=== PATIENT | male | born 1935 | race Caucasian/White ===

== ENCOUNTER 2019-07-18 09:08 | Inpatient (IN) | payer MEDICARE, OTHER ==
--- OUTSIDE RECORDS SUMMARY | 2019-07-18 09:32 | XMS REPORT ---
:1935 [facility] Address [address] [place] [address] Dr. Laguerre[address] [place] [id number] Care Team Providers Name Role Phone Unavailable Unavailable Unavailable Problems This patient has no known problems. Allergies, Adverse Reactions, Alerts This patient has no known allergies or adverse reactions. Medications This patient has no known medications.
[2019-07-18 09:38] LABS: Absolute Lymphocytes (CBC) 0.4 K/uL (0.7-4.9); Basophils % 0.2 % (0-1.3); Hematocrit 33.9 % (39.6-49.0); MPV 8.5 fL (7.6-11.3); RBC Red Blood Cell Count 3.81 M/uL (4.33-5.43)
--- NOTE | 2019-07-18 09:48 | RAD REPORT ---
EXAM DESCRIPTION: CT - CTHCSPWOC - 07/18/2019 9:32 am CLINICAL HISTORY: fall, laceration, slip and fall, head and neck injury, laceration to the right per iorbital region, left ear contusion COMPARISON: Head Brain W/Wo Con dated 09/03/2015 TECHNIQUE: Axial 5 mm thick images of the head were obtained. Axial 2 mm thick images of the cervic al spine were obtained with sagittal and coronal reconstruction images generated and reviewed. All CT scans are performed using dose optimization technique as appropriate and may include automated exposure control or mA/KV adjustment according to patient size. FINDINGS: No intracranial hemorrhage, mass, edema or acute intracranial finding. No suspicion for ac chase infarction. Moderate severity atrophy and chronic ischemic changes are present. No cortical edema or sulcal effacement. Ventricles are in proportion to volume loss. The intracranial findings are sim ilar to comparison. Mastoid air cells and paranasal sinuses are clear. No globe or orbit abnormality seen. Cervical body height and alignment are normal. No disc space narrowing present. Mineralization is pre sent in the C3-4 disc space and this level is partially fused, probably congenital. Left-side facet j oints are fused at this level. Patient has advanced degenerative change at the dens C1 level. Degener ative cystic changes seen in the dens and there is spurring between the dens and anterior arch C1. Tr ansverse ligament is calcified. Left bony foraminal encroachment present at C2-3 mostly from facet hy pertrophy. Significant bilateral bony foraminal encroachment at C3-4. Moderately severe right foramin al stenosis from facet hypertrophy at C4-5. Severe left foraminal stenosis on the left at C5-6 from u ncovertebral hypertrophy and facet hypertrophy. No fracture or acute bony abnormality. Central canal detail is inherently limited. No paraspinal mass or hematoma. IMPRESSION: Moderate severity atrophy and chronic ischemic change matching the 2016 study. No acute intracranial finding. Advanced cervical spine degenerative change with multiple levels showing significant foraminal stenos is. Findings are detailed in the body of the report. No fracture or acute cervical finding. Central canal detail is inherently limited.
--- NOTE | 2019-07-18 09:58 | RAD REPORT ---
EXAM DESCRIPTION: RAD - Chest Single View - 07/18/2019 9:47 am CLINICAL HISTORY: fall, hypoxia COMPARISON: Two view chest March 2019 TECHNIQUE: AP portable chest image was obtained 07/18/2019 9:47 am . FINDINGS: Extensive chronic interstitial lung disease is present. Lung markings are asymmetrically p rominent in the lower left lung field. This matches the prior study. Given the fall and trauma histor y this is not suspicious for pneumonia. Lower right lung field findings may be slightly improved. Car diomegaly is present. Vasculature within normal limits. Sternotomy wires and pacemaker in place. No p neumothorax. No pulmonary contusion suspected. No gross acute bone abnormality seen. No acute aortic findings suspected. IMPRESSION: Patient has extensive chronic interstitial lung disease worse in the left base. Acute lung parenchymal process is doubtful. No pulmonary contusion or pneumothorax.
[2019-07-18 10:02] LABS: Albumin 3.4 g/dL (3.4-5.0); Bilirubin Total 1.3 mg/dL (0.2-1.0); Protein, Total 7.1 g/dL (6.4-8.2); Troponin (Emerg Dept Use Only) 0.05 ng/mL (0.0-0.045)
[2019-07-18 10:03] LABS: Potassium 3.7 mmol/L (3.5-5.1)
[2019-07-18] MEDS ORDERED: LIDOCAINE 1% W/EPI 1:100,000 MDV 50 ML VIAL ONE (10:53)
--- NOTE | 2019-07-18 11:42 | RAD REPORT ---
EXAM DESCRIPTION: RAD - Hip Bilateral With Pelvis - 07/18/2019 11:33 am CLINICAL HISTORY: Fall, pelvis and hip pain COMPARISON: None. TECHNIQUE: AP view of the pelvis and hip joints was obtained with frogleg views of each hip joint. FINDINGS: No fractures identified in the bony pelvis. Lower lumbar degenerative changes are present only partially visualized. Lowest lumbar level is partially sacralized. SI joint and pubic symphysis degenerative changes are present but minimal. Mild bilateral hip joint degenerative change present. N o AVN or focal femoral head abnormality. No proximal femur fracture or dislocation. Arterial tree calcifications are present. No suspicious soft tissue finding. IMPRESSION: Mild pelvic and hip joint degenerative change. No fracture or acute finding.
--- NOTE | 2019-07-18 12:23 | EDPHYS ---
Physician Documentation [facility] Name: Zeeshan Doe Age: 83 yrs Sex: Male : 1935 Arrival Date: 07/18/2019 Time: 09:14 Bed 7 Private MD: ED Physician Pavan Gómez HPI: 07/17 09:14 This 83 yrs old Male presents to ER via Unassigned with complaints of Fall ps1 Injury, Laceration To Head. 09:14 Patient BIBEMS. Reported low O2 sats, improved with O2 by BNC. Fell while getting off ps1 of the toilet. No reported blood thinners per EMS. AOx3. Skin tears otherwise. No known COVID exposure.. Historical: - Allergies: 09:19 No Known Allergies; sv - Home Meds: 11:32 atorvastatin 80 mg [Active]; Docusate Sodium Oral [Active]; donepezil 5 mg Oral tab sv [Active]; dutasteride 0.5 mg Oral cap [Active]; Eliquis 5 mg Oral tab 1 tab 2 times per day [Active]; Flomax 0.4 mg Oral cp24 1 cap once daily [Active]; gemfibrozil 600 mg Oral tab 1 tab 2 times per day [Active]; Lasix Oral 80 mg daily [Active]; metoprolol tartrate 50 mg Oral tab 1 tab 2 times per day [Active]; [place] 7.5-325 mg Oral tab q12h prn [Active]; Paxil 20 mg Oral tab [Active]; Protonix 40 mg Oral TbEC [Active]; - PMHx: 09:19 High Cholesterol; sv - PSHx: 09:19 Pacemaker; sv - Immunization history:: Adult Immunizations up to date. - Social history:: Smoking status: . ROS: 09:14 Constitutional: Negative for fever, chills, and weight loss, Eyes: Negative for injury, ps1 pain, redness, and discharge, Cardiovascular: Negative for chest pain, palpitations, and edema, Respiratory: Negative for shortness of breath, cough, wheezing, and pleuritic chest pain, Abdomen/GI: Negative for abdominal pain, nausea, vomiting, diarrhea, and constipation, MS/Extremity: Negative for injury and deformity, Neuro: Negative for headache, weakness, numbness, tingling, and seizure, Psych: Negative for depression, anxiety, suicide ideation, homicidal ideation, and hallucinations. 09:14 Skin: Positive for abrasion(s), laceration(s), of the forehead and right eye. Exam: 09:14 Constitutional: This is a well developed, well nourished patient who is awake, alert, ps1 and in no acute distress. Eyes: Pupils equal round and reactive to light, extra-ocular motions intact. Lids and lashes normal. Conjunctiva and sclera are non-icteric and not injected. Chest/axilla: Normal chest wall appearance and motion. Nontender with no deformity. No lesions are appreciated. Cardiovascular: Regular rate and rhythm. No gallops, murmurs, or rubs. Normal PMI, no JVD. No pulse deficits. Respiratory: Lungs have equal breath sounds bilaterally, clear to auscultation and percussion. No rales, rhonchi or wheezes noted. No increased work of breathing, no retractions or nasal flaring. Abdomen/GI: Soft, non-tender, with normal bowel sounds. No distension or tympany. No guarding or rebound. No evidence of tenderness throughout. Neuro: Awake and alert, GCS 15, oriented to person, place, time, and situation. Cranial nerves II-XII grossly intact. Sensory grossly intact. 09:14 Head/face: Noted is hematoma, a laceration(s), that is deep, 4 cm(s), of the forehead and right eye. 09:14 Musculoskeletal/extremity: Extremities: decreased ROM. Vital Signs: 09:19 BP 120 / 67; Pulse 60; Resp 22; Temp 96.9; sv 09:53 BP 120 / 59; Pulse 61; Resp 21; Temp 96.9; Pulse Ox 94% on 4 lpm NC; sv 10:30 BP 132 / 62; Pulse 60; Resp 19; Pulse Ox 95% on 4 lpm NC; sv 12:00 BP 146 / 60; Pulse 60; Resp 16; Pulse Ox 98% on 4 lpm NC; sv 13:18 BP 149 / 61; Pulse 60; Resp 18; Pulse Ox 98% on 4 lpm NC; sv [place] Coma Score: 09:06 Eye Response: spontaneous(4). Verbal Response: oriented(5). Motor Response: obeys sv commands(6). Total: 15. 09:53 Eye Response: spontaneous(4). Verbal Response: oriented(5). Motor Response: obeys sv commands(6). Total: 15. 10:30 Eye Response: spontaneous(4). Verbal Response: oriented(5). Motor Response: obeys sv commands(6). Total: 15. 13:18 Eye Response: spontaneous(4). Verbal Response: oriented(5). Motor Response: obeys sv commands(6). Total: 15. Trauma Score (Adult): 09:06 Eye Response: spontaneous(1); Verbal Response: oriented(1); Motor Response: obeys sv commands(2); Systolic BP: > 89 mm Hg(4); Respiratory Rate: 10 to 29 per min(4); Delia Score: 15; Trauma Score: 12 09:53 Eye Response: spontaneous(1); Verbal Response: oriented(1); Motor Response: obeys sv commands(2); Systolic BP: > 89 mm Hg(4); Respiratory Rate: 10 to 29 per min(4); [place] Score: 15; Trauma Score: 12 13:18 Eye Response: spontaneous(1); Verbal Response: oriented(1); Motor Response: obeys sv commands(2); Systolic BP: > 89 mm Hg(4); Respiratory Rate: 10 to 29 per min(4); [place] Score: 15; Trauma Score: 12 Laceration: 11:11 Wound Repair of 4cm ( 1.6in ) subcutaneous laceration to forehead. Distal ps1 neuro/vascular/tendon intact. Anesthesia: Local anesthetic administered with 5 mls of 1% lidocaine. Wound prep: Simple cleansing with hibiclenz by tx. Skin closed with 4 5-0 Prolene using simple sutures and sterile technique. Dressed with Bacitracin. Patient tolerated well. MDM: 09:20 Patient medically screened. ps1 12:20 ED course: Spoke with Dr. Méndez and he wants patient tested for COVID as this is ps1 significantly different from his normal. Pt to be admitted with precautions. . 12:23 Data reviewed: vital signs, nurses notes, lab test result(s), radiologic studies, and ps1 as a result, I will admit patient. 07/17 09:19 Order name: CBC with Diff; Complete Time: 09:47 ps1 07/17 09:19 Order name: CMP; Complete Time: 10:40 rust 07/17 09:19 Order name: Troponin (emerg Dept Use Only); Complete Time: 10:40 rust 07/17 12:33 Order name: Lipid Profile EDMN 07/17 12:33 Order name: Lipid Profile EDMN 07/17 12:34 Order name: Misc. Lab Test rust 07/17 09:19 Order name: CT Head C Spine; Complete Time: 10:40 rust 07/17 09:19 Order name: CXR XRAY; Complete Time: 10:40 rust 07/17 09:20 Order name: EKG; Complete Time: 09:20 sv 07/17 10:00 Order name: Hip Bilateral With Pelvis; Complete Time: 11:49 EDMN 07/17 14:09 Order name: CT Chest Wo Con ps1 07/17 09:19 Order name: EKG Strip; Complete Time: 09:51 rust 07/17 10:58 Order name: Gloves, Sterile; Complete Time: 10:58 [facility] 07/17 10:58 Order name: Setup Suture Tray; Complete Time: 10:58 [facility] 07/17 12:33 Order name: CONS Physician Consult [facility] 07/17 12:33 Order name: Respiratory Therapy Consult EDMN Administered Medications: 10:50 Drug: Lidocaine-Epinephrine -1%: (1:100,000) 1 application {Note: given to Dr Singer choi for procedure.} Volume: 20 ml; Route: Infiltration; 13:37 Drug: TORadol - Ketorolac 15 mg Route: IVP; Site: left antecubital; sv 14:11 Follow up: Response: No adverse reaction sv Disposition: 07/18/19 12:22 Hospitalization ordered by Prasanna Méndez for Inpatient Admission. Preliminary diagnosis are Hypoxia, Fall, Facial laceration.. - Bed requested for Telemetry/MedSurg (Inpatient). - Status is Inpatient Admission. em1 - Condition is Fair. - Problem is new. - Symptoms are unchanged. Signatures: Dispatcher [employer] EDMN Elsa Eastman RN Guicho Laws em1 Santosh Hernandez RN RN [id number] Singer, Phillip, MD MD ps1 Corrections: (The following items were deleted from the chart) 12:20 09:14 Patient BIBEMS. Reported low O2 sats, improved with O2 by BNC. Fell while getting ps1 off of the toilet. No reported blood thinners per EMS. AOx3. Skin tears otherwise. . ps1 13:04 12:22 Hospitalization Ordered by A Honey MIRELES for Inpatient Admission. Preliminary em1 diagnosis is Hypoxia; Fall; Facial laceration.. Bed requested for Telemetry/MedSurg (Inpatient). Status is Inpatient Admission. Condition is Fair. Problem is new. Symptoms are unchanged. ps1 15:03 13:04 07/18/2019 12:22 Hospitalization Ordered by A Honey MIRELES for Inpatient Admission. em1 Preliminary diagnosis is Hypoxia; Fall; Facial laceration.. Bed requested for Telemetry/MedSurg (Inpatient). Status is Inpatient Admission. Condition is Fair. Problem is new. Symptoms are unchanged. em1
--- NOTE | 2019-07-18 12:23 | ER ---
Nurse's Notes [facility] Name: Zeeshan Doe Age: 83 yrs Sex: Male : 1935 Arrival Date: 07/18/2019 Time: 09:14 Bed 7 Private MD: Diagnosis: Hypoxia;Fall;Facial laceration. Presentation: 07/17 09:06 Chief complaint: EMS states: was getting off of the toilet and his hand slipped and sv fell in the bathroom, denies LOC. Laceration to the right eyebrow, contusion to the left ear/elbow/tricep. Eyes are pinpoint (took 2 tabs of Hydrocodone [employer]) 80% RA placed on O2 \T\ 6L per NC O2 sat up to 93-94%. Bp 158/74 HR-80. Pt c/o buttock pain. Care prior to arrival: IV initiated. 20 GA, in the left antecubital area, Oxygen administered. via nasal cannula. Mechanism of Injury: Fall from standing position. Trauma event details: Injury occurred in the [facility], Injury occurred: at home. Injury occurred: July 18, 2019 Injury occurred at: 02:30. 09:06 Acuity: TISH 2 sv 09:06 Method Of Arrival: EMS: [facility] sv 09:06 Onset of symptoms was July 18, 2019 at 02:30. sv 09:19 Coronavirus screen: The patient has NOT traveled to a country currently being monitored sv by the [facility] within the last 14 days. Proceed with normal triage procedures. The patient has NOT had contact with any known and/or suspected case of coronavirus. Proceed with normal triage procedures. Ebola Screen: Patient negative for fever greater than or equal to 101.5 degrees Fahrenheit, and additional compatible Ebola Virus Disease symptoms Patient denies exposure to infectious person. Patient denies travel to an Ebola-affected area in the 21 days before illness onset. No symptoms or risks identified at this time. Initial Sepsis Screen: Does the patient meet any 2 criteria? RR > 20 per min. No. Patient's initial sepsis screen is negative. Does the patient have a suspected source of infection? No. Patient's initial sepsis screen is negative. Risk Assessment: Do you want to hurt yourself or someone else? Patient reports no desire to harm self or others. Trauma Activation: Not Applicable Physician: ED Physician; Name: ; Notified At: ; Arrived At: Physician: General Surgeon; Name: ; Notified At: ; Arrived At: Physician: Radiology; Name: ; Notified At: ; Arrived At: Physician: Respiratory; Name: ; Notified At: ; Arrived At: Physician: Lab; Name: ; Notified At: ; Arrived At: Historical: - Allergies: 09:19 No Known Allergies; sv - Home Meds: 11:32 atorvastatin 80 mg [Active]; Docusate Sodium Oral [Active]; donepezil 5 mg Oral tab sv [Active]; dutasteride 0.5 mg Oral cap [Active]; Eliquis 5 mg Oral tab 1 tab 2 times per day [Active]; Flomax 0.4 mg Oral cp24 1 cap once daily [Active]; gemfibrozil 600 mg Oral tab 1 tab 2 times per day [Active]; Lasix Oral 80 mg daily [Active]; metoprolol tartrate 50 mg Oral tab 1 tab 2 times per day [Active]; [place] 7.5-325 mg Oral tab q12h prn [Active]; Paxil 20 mg Oral tab [Active]; Protonix 40 mg Oral TbEC [Active]; - PMHx: 09:19 High Cholesterol; sv - PSHx: 09:19 Pacemaker; sv - Immunization history:: Adult Immunizations up to date. - Social history:: Smoking status: . Screenin:54 Abuse screen: Denies threats or abuse. Denies injuries from another. Tuberculosis sv screening: No symptoms or risk factors identified. 09:55 Nutritional screening: No deficits noted. Fall Risk None identified. sv Primary Survey: 09:06 NO uncontrolled hemorrhage observed. A: The patient is alert. Airway: patent, No sv supplemental oxygen in use on arrival. Oral cavity: clear, Trachea midline. Breathing/Chest: Respiratory pattern: regular, Respiratory effort: spontaneous, unlabored, Chest inspection: symmetrical rise and fall of the chest. Circulation: Pulses: palpable right radial artery and left radial artery. Skin color: pink, Skin temperature: warm, dry. Disability Alert. Exposure/Environment: All clothing and personal items were removed. Forensic evidence collection is not deemed to be indicated at this time. Items placed in patient belonging bag. There is no evidence of uncontrolled external bleeding. Obvious injury(ies) are noted at this time: lacerations and contusions. 09:58 Reassessment Airway Airway Patent Oxygen Nasal cannula Oral cavity Clear Trachea sv Midline Breathing/Chest Respiratory pattern Regular Respiratory effort Spontaneous Unlabored Chest inspection Symmetrical Circulation Heart rhythm Paced Heart tones Present Pulses Palpable Color Dewar Temperature Warm Dry Disability Alert. 11:00 Reassessment Airway Airway Patent Oxygen Nasal cannula Oral cavity Clear Trachea sv Midline Breathing/Chest Respiratory pattern Regular Respiratory effort Spontaneous Unlabored Chest inspection Symmetrical Circulation Heart rhythm Paced Heart tones Present Pulses Palpable Color Dewar Temperature Warm Dry Disability Alert. 12:00 Reassessment Airway Airway Patent Oxygen Nasal cannula Oral cavity Clear Trachea sv Midline Breathing/Chest Respiratory pattern Regular Respiratory effort Spontaneous Unlabored Chest inspection Symmetrical Circulation Heart rhythm Paced Heart tones Present Pulses Palpable Color Dewar Temperature Warm Dry Disability Alert. 13:00 Reassessment Airway Airway Patent Oxygen Nasal cannula Oral cavity Clear Trachea sv Midline Breathing/Chest Respiratory pattern Regular Respiratory effort Spontaneous Unlabored Chest inspection Symmetrical Circulation Heart rhythm Paced Heart tones Present Pulses Palpable Color Dewar Temperature Warm Dry Disability Alert. 14:00 Reassessment Airway Airway Patent Oxygen Nasal cannula Oral cavity Clear Trachea sv Midline Breathing/Chest Respiratory pattern Regular Respiratory effort Spontaneous Unlabored Chest inspection Symmetrical Circulation Heart rhythm Paced Heart tones Present Pulses Palpable Color Dewar Temperature Warm Dry Disability Alert. Secondary Survey: 09:10 HEENT: Head Other laceration noted to the right eyebrow. : No signs and/or symptoms sv were reported regarding the genitourinary system. Musculoskeletal: No signs and/or symptoms reported regarding the musculoskeletal system. Assessment: 11:33 Reassessment: Alondra castellanos) is pt's visitor at this time. sv 13:19 Reassessment: Attempted to call report, nurse to call back. sv Vital Signs: 09:19 BP 120 / 67; Pulse 60; Resp 22; Temp 96.9; sv 09:53 BP 120 / 59; Pulse 61; Resp 21; Temp 96.9; Pulse Ox 94% on 4 lpm NC; sv 10:30 BP 132 / 62; Pulse 60; Resp 19; Pulse Ox 95% on 4 lpm NC; sv 12:00 BP 146 / 60; Pulse 60; Resp 16; Pulse Ox 98% on 4 lpm NC; sv 13:18 BP 149 / 61; Pulse 60; Resp 18; Pulse Ox 98% on 4 lpm NC; sv Delia Coma Score: 09:06 Eye Response: spontaneous(4). Verbal Response: oriented(5). Motor Response: obeys sv commands(6). Total: 15. 09:53 Eye Response: spontaneous(4). Verbal Response: oriented(5). Motor Response: obeys sv commands(6). Total: 15. 10:30 Eye Response: spontaneous(4). Verbal Response: oriented(5). Motor Response: obeys sv commands(6). Total: 15. 13:18 Eye Response: spontaneous(4). Verbal Response: oriented(5). Motor Response: obeys sv commands(6). Total: 15. Trauma Score (Adult): 09:06 Eye Response: spontaneous(1); Verbal Response: oriented(1); Motor Response: obeys sv commands(2); Systolic BP: > 89 mm Hg(4); Respiratory Rate: 10 to 29 per min(4); [place] Score: 15; Trauma Score: 12 09:53 Eye Response: spontaneous(1); Verbal Response: oriented(1); Motor Response: obeys sv commands(2); Systolic BP: > 89 mm Hg(4); Respiratory Rate: 10 to 29 per min(4); Delia Score: 15; Trauma Score: 12 13:18 Eye Response: spontaneous(1); Verbal Response: oriented(1); Motor Response: obeys sv commands(2); Systolic BP: > 89 mm Hg(4); Respiratory Rate: 10 to 29 per min(4); Delia Score: 15; Trauma Score: 12 ED Course: 09:06 Oxygen administration via nasal cannula \T\ 4L/min. sv 09:06 Maintain EMS IV. Dressing intact. Good blood return noted. Site clean \T\ dry. Gauge \T\ sv site: 20G R AC. 09:10 Thermoregulation: warm blanket given to patient. sv 09:10 Arm band placed on Patient placed in an exam room, on a stretcher, on auto care center manager, sv on pulse oximetry. 09:10 Patient has correct armband on for positive identification. Placed in gown. Bed in low sv position. Call light in reach. Side rails up X2. client service administrator on. Pulse ox on. NIBP on. Door closed. Warm blanket given. Pillow given. Head of bed elevated. Turned to right side. 09:14 Patient arrived in ED. sv 09:14 Elsa Eastman, [place] is Primary Nurse. sv 09:14 Pavan Gómez MD is Attending Physician. ps1 09:18 Triage completed. sv 09:33 CT Head C Spine In Process Unspecified. EDMS 09:56 CXR XRAY In Process Unspecified. EDMS 11:32 Hip Bilateral With Pelvis In Process Unspecified. EDMS 11:37 X-ray completed. Patient tolerated procedure well. Patient moved back from radiology. ml 11:37 Patient moved back from radiology. sv 12:22 Pavan Gómez MD is Hospitalizing Provider. ps1 12:22 Prasanna Méndez MD is Hospitalizing Provider. ps1 14:12 No provider procedures requiring assistance completed. Patient admitted, IV remains in sv place. intact. Administered Medications: 10:50 Drug: Lidocaine-Epinephrine -1%: (1:100,000) 1 application {Note: given to Dr Singer choi for procedure.} Volume: 20 ml; Route: Infiltration; 13:37 Drug: TORadol - Ketorolac 15 mg Route: IVP; Site: left antecubital; sv 14:11 Follow up: Response: No adverse reaction sv Intake: 09:06 PO: 0ml; Total: 0ml. sv 09:53 PO: 0ml; Total: 0ml. sv 13:18 PO: 0ml; Total: 0ml. sv Output: 09:06 Urine: 0ml; Total: 0ml. sv 09:53 Urine: 0ml; Total: 0ml. sv 13:18 Urine: 0ml; Total: 0ml. sv Outcome: 12:22 Decision to Hospitalize by Provider. ps1 14:09 Admitted to Tele accompanied by tech, via stretcher, room 417, with oxygen, with chart, sv Report called to Angella GHOTRA 14:09 Condition: stable 14:09 Instructed on the need for admit. 14:13 Patient's length of stay in the Emergency Department was greater than 2 hours. sv Patient's length of stay was extended due to staffing issues within the emergency department. 15:03 Patient left the ED. em1 Signatures: Dispatcher [employer] EDMS Elsa Eastman, Lisa Andrade RN, Eric em1 Pavan Gómez MD MD ps1 Corrections: (The following items were deleted from the chart) 09:52 09:06 Chief complaint: EMS states: was getting off of the toilet and his hand slipped sv and fell in the bathroom, denies LOC. Laceration to the right eyebrow, contusion to the left ear/elbow/tricep. Eyes are pinpoint (took 2 tabs of Hydrocodone [employer]) 80% RA placed on O2 \T\ 6L per NC O2 sat up to 93-94%. Bp 158/74 HR-80 sv
[2019-07-18] MEDS ORDERED: KETOROLAC 30 MG/ML INJ ONE (13:33)
[2019-07-18 15:01] VITALS: BMI 27.6
--- NOTE | 2019-07-18 15:07 | RAD REPORT ---
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 Areas of airspace opacity are present in both lowe r lobes, greater on the left suspicious for superimposed infiltrate/pneumonia. Small bilateral pleura l effusions. No pneumothorax. The heart is enlarged with pacer device present. Few mildly prominent mediastinal lymph nodes. Small hiatal hernia. No concerning bony finding. Cholelithiasis. All CT scans are performed using dose optimization technique as appropriate and may include automated exposure control or mA/KV adjustment according to patient size. 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
--- NOTE | 2019-07-18 16:53 | EKG ---
Test Date: 2019-07-18 Test Time: 09:44:24 Personal Financial Advisor: ADALID MEASUREMENT RESULTS: Intervals: Rate: 60 [place]: QRSD: 198 QT: 548 QTc: 548 [place]: P: [place]: QRS: -86 T: 113 INTERPRETIVE STATEMENTS: Rhythm consistent with DDD pacing atrial complexes are both paced and sensed on this ECG Abnormal ECG Compared to ECG 05/10/2012 14:26:44 no significant change from previous ECG Electronically Signed On 07-18-19 16:53:21 CDT by Doc Marques
[2019-07-18] MEDS ORDERED: AZITHROMYCIN IV 500 MG in NA CHLORIDE 0.9% 250 ML IVPB ONE (22:21)
[2019-07-18] MEDS: CEFTRIAXONE/SWI 1gm 1 GM/10 ML SYR IV SCH (22:40)
[2019-07-18] MEDS: HYDROCODONE/APAP 7.5/325 MG TAB PO PRN (22:41)
[2019-07-18] MEDS ORDERED: NA CHLORIDE 0.9% 250 ML ONE (22:43)
[2019-07-18] MEDS ORDERED: AZITHROMYCIN 500 MG INJ IVPB ONE (22:43)
--- NOTE | 2019-07-19 08:20 | HP ---
Date of Admission: 07/18/2019 Chief Complaint: Fall, head injury, low oxygen level, feeling dizzy. History Of Present Illness: 83-year-old male patient who has been feeling dizzy lately and had multiple falls at home. Last fall was today where he fell down and had hit his head and had superficial laceration involving right forehead area. He came into emergency room with this. After he arrived to the ER, he also reported he has been having some cough lately and he was noted to be hypoxic with oxygen saturation 70% to 80% on room air. His oxygen saturation subsequently was adequate, more than 90%, on nasal cannula oxygen. He was not in any respiratory distress. As soon as ER physician contacted me, I advised him to perform test for COVID-19, put the patient on appropriate isolation precautions, and CAT scan of the chest was ordered. Patient was admitted to medical floor as he was hemodynamically stable. I saw him this evening along with the nurse in the room. Patient was advised to keep his face mask on all the time while he is awake or sleeping. Review of Systems: LEAF STRIPPER: As mentioned above. Respiratory: As mentioned above. ENT: Impaired hearing, which is chronic. Musculoskeletal: Chronic back pain. All other systems reviewed and negative. Allergies: NO KNOWN ALLERGIES. Medications: At home takes Thurman, which was prescribed by the pain management physician. Other medication includes atorvastatin 80 mg daily in the evening, donepezil 5 mg daily, gemfibrozil 600 mg 2 times a day, metoprolol tartrate 25 mg 2 times a day, nitroglycerin sublingual p.r.n. for chest pain, paroxetine 20 mg p.o. daily, Xarelto 20 mg p.o. daily in the evening with meals, tamsulosin 0.4 mg p.o. daily, famotidine 20 mg p.o. b.i.d. Past Medical History: Significant for gastroesophageal reflux disease, impaired fasting glucose, allergic rhinitis, hypertension, mixed hyperlipidemia , coronary artery disease, benign prostatic hypertrophy with elevated PSA, osteoarthritis at multiple sites, anemia, thrombocytopenia, depression. Past Surgical History: Cataract surgery, coronary artery bypass surgery in 1999 , pacemaker placement in 2007, TURP in 2014, UroLift in 2017, vasectomy, left shoulder surgery, arthroscopic right knee surgery. Family History: Father of emphysema. Mother , details unknown. Brother due to throat cancer and sister , details unknown. Social History: Negative for smoking. Use of alcohol negative. Physical Examination: Vital Signs: Temperature 98.2, pulse 62, respiratory rate 19, blood pressure 147/81, oxygen saturation 99%. General: Awake, alert, oriented, not in distress. HEENT: Forehead area just above the right brow has a superficial laceration with multiple sutures present. No evidence of any discharge or bleeding. Conjunctivae nonerythematous. Sclerae white. Mouth, no thrush or edema noted. Ears/Nose, no mass, lesion, discharge noted. Neck: Supple. No JVD, lymph nodes, bruit, thyromegaly noted. Lungs: Bilateral good equal air entry. Clear to auscultation. No rhonchi. No rales. Heart: Normal heart sounds, no murmur or gallop. Abdomen: Soft, bowel sounds normal. No guarding, rigidity, tenderness, mass, hepatosplenomegaly, distention, or bruit noted. Extremities: No leg edema. No calf tenderness. Skin: No rash, ulcer, cellulitis. Lymphatics: No lymph node enlargement in neck, supraclavicular, infraclavicular region. Neuro: No focal neurological deficit. Chest: Unremarkable. External Genitalia: Deferred. Rectal: Deferred. Laboratory Data: White count 7.3, hemoglobin 11.4, platelets 120. Sodium 140, potassium 3.7, chloride 105, bicarb 23, BUN 24, creatinine 1.11, glucose 105, SGOT 25, SGPT 15, alkaline phosphatase 73. Troponin 0.05. Chest x-ray, extensive chronic interstitial lung disease, worse in the left lung base. CAT scan of the chest, prominent fibro-emphysematous changes present throughout the lungs with air space opacity in both lower lobes with trace pleural fluid. Finding suspicious for pneumonia in both lung bases. CAT scan of the head and cervical spine, moderate severity, atrophy and chronic ischemic changes. Advanced cervical spine degenerative changes. No acute cervical spine findings. Presence of significant bilateral foraminal stenosis. Hip and pelvis x-ray, mild pelvic and hip joint degenerative changes. No fracture. Electrocardiogram, paced rhythm. Impression: 1. Pneumonia. 2. Head injury. 3. Coronary artery disease. 4. Anemia. 5. Thrombocytopenia. 6. Osteoarthritis, multiple sites. 7. Hypertension. 8. Mixed hyperlipidemia. 9. Impaired fasting glucose. 10. Depression. Plan: Admit patient to hospital for further evaluation and management of this problem. Patient is appropriate for inpatient and is expected to spend 2 midnights in hospital. Home medications will be continued per order. We will go ahead and consult Dr. Pacheco from Pulmonary. Start the patient on empiric antibiotic, keep the patient in isolation room with appropriate precautions until COVID-19 test result becomes available. As per my understanding, test was done and results may not be available for 4-5 days. I will see him tomorrow for followup. GURPREET/MODL Voice ID: [id number] ELOISA
[2019-07-19] MEDS ORDERED: CEFTRIAXONE 1 GM/NS 50 ML 1 GM/50 ML BAG IV SCH (09:00)
[2019-07-19] MEDS: HYDROCODONE/APAP 7.5/325 MG TAB PO PRN ×2 (09:07→20:43)
[2019-07-19] MEDS: TAMSULOSIN 0.4 MG SR CAP PO SCH (09:08)
[2019-07-19] MEDS: APIXABAN 5 MG TABLET PO SCH ×2 (09:08→20:42)
[2019-07-19] MEDS: PANTOPRAZOLE 40MG TABLET PO SCH (09:08)
[2019-07-19] MEDS: gemfibroziL 600 MG TAB PO SCH ×2 (09:08→20:42)
[2019-07-19] MEDS: FUROSEMIDE 40 MG TABLET PO SCH (09:14)
[2019-07-19] MEDS: CEFTRIAXONE/SWI 1gm 1 GM/10 ML SYR IV SCH ×2 (10:01→20:44)
--- NOTE | 2019-07-19 12:32 | PN ---
Date of Progress Note: 07/19/2019 Subjective: Patient was seen this morning for followup. No new complaints or problems reported by h im. Lying in bed, not in any distress. Denies any new complaints. Objective: Vital Signs: Reviewed. HEENT: Unremarkable except sutures present over the right forehead area. No bleeding. Patient has bruising around the right eye. Lungs: Clear to auscultation. Heart: Sounds normal. Abdomen: Soft. Bowel sounds normal. Impression: 1.Pneumonia. 2.Rule out COVID-19. 3.Chronic anticoagulation therapy. 4.Congestive heart failure, chronic, systolic. 5.Hypertension. 6.Coronary artery disease. 7.Mixed hyperlipidemia. Plan: We will go ahead and continue home medications including his anticoagulation therapy. He take s Eliquis 5 mg twice a day per neurology physician. We will continue empiric antibiotic that was started fo r pneumonia. Follow up with Dr. Pacheco and keep the patient in isolation at the present time and r esult of COVID-19 test is pending. GURPREET/MODL Voice ID: [id number] Report ID: [id number]
--- NOTE | 2019-07-19 13:23 | P.CNS ---
Date of Consult: 07/19/19 Reason for Consult: Interstitial lung disease Chief Complaint: Cough and shortness of breath History of Present Illness: Patient is 83 years of age is was dizzy at fallen as some bruising on his face he has been complaining of a chronic severe persistent cough in addition to shortness of breath he has never smoked very hard of hearing denies any recent fever for recent contact with Covid19 patient/chest x-ray and CT scan shows pulmonary fibrosis fairly classic changes Allergies No Known Allergies Allergy (Unverified 07/18/19 09:54) Home Medications: Apixaban [Eliquis] 1 tab PO BID 07/18/19 Atorvastatin Calcium [Lipitor] 1 tab PO BEDTIME 07/18/19 Furosemide 1 tab PO DAILY 07/18/19 Hydrocodone 7.5/APAP 325 [Meldrim 7.5/325 mg*] 1 tab PO Q12H 07/18/19 Metoprolol Tartrate [Lopressor*] 1 tab PO BID 07/18/19 Pantoprazole [Protonix Tab*] 1 tab PO DAILY 07/18/19 Tamsulosin HCl 1 tab PO DAILY 07/18/19 gemfibroziL [Gemfibrozil] 1 tab PO BID 07/18/19 Dutasteride [Avodart*] 1 tab PO DAILY 07/19/19 - Past Medical/Surgical History Diabetic: No -: arthritis -: hyperlipidemia -: HTN -: pacemaker -: right shoulder surgery -: right knee surgery - Social History Alcohol use: No CD- Drugs: No Caffeine use: No Place of Residence: Home Review of Systems General: Weakness Respiratory: Cough, Shortness of Breath Physical Examination Temp Pulse Resp BP Pulse Ox 97.1 F 82 18 108/63 98 07/19/19 12:00 07/19/19 12:00 07/19/19 12:00 07/19/19 12:00 07/19/19 12:00 General: Alert, Oriented x3 Respiratory: Crackles/rales (Bilateral) Cardiovascular: No edema, Regular rate/rhythm - Problems (1) Idiopathic pulmonary fibrosis Current Visit: Yes Status: Acute Plan: Patient is 83 years of age a he had fallen feeling weak and easy complaining of chronic cough he has idiopathic pulmonary fibrosis classic changes on CT scan with subpleural cystic changes he has been having cough and shortness of breath for quite some time as not smoke there is no clinical evidence of sepsis vital signs are stable no cultures ordered will evaluate him for home O2 possible discharge on prednisone 10 mg b.i.d. possible antibiotics need outpatient workup I suspect his chronic cough is from is idiopathic pulmonary fibrosis blood pressure is low consider lowering the dose of his diuretic
[2019-07-19] MEDS: predniSONE 20 MG TAB PO SCH ×2 (13:44→20:42)
[2019-07-19] MEDS ORDERED: ATORVASTATIN 80 MG TAB PO SCH (21:00)
[2019-07-20 07:44] VITALS: O2SAT 95
[2019-07-20] MEDS: APIXABAN 5 MG TABLET PO SCH (08:19)
[2019-07-20] MEDS: gemfibroziL 600 MG TAB PO SCH (08:19)
[2019-07-20] MEDS: PANTOPRAZOLE 40MG TABLET PO SCH (08:19)
[2019-07-20] MEDS: CEFTRIAXONE/SWI 1gm 1 GM/10 ML SYR IV SCH (08:19)
[2019-07-20] MEDS: predniSONE 20 MG TAB PO SCH (08:19)
[2019-07-20] MEDS: TAMSULOSIN 0.4 MG SR CAP PO SCH (08:20)
[2019-07-20] MEDS: FUROSEMIDE 40 MG TABLET PO SCH (08:20)
--- NOTE | 2019-07-20 16:29 | PN ---
Date of Progress Note: 07/20/2019 Subjective: The patient was seen this morning for followup. No new complaints or problems reported by patient. Lying in bed, not in any distress. Objective: Vital Signs: Reviewed. HEENT: Unremarkable except right forehead laceration with sutures present. No evidence of any disch arge or bleeding. Lungs: Clear to auscultation. Heart: Sounds normal. Abdomen: Soft. Bowel sounds normal. No guarding, rigidity, tenderness, or distention. Extremities: No leg edema. Impression: 1.Pneumonia. 2.Pulmonary fibrosis. 3.Chronic systolic congestive heart failure. 4.Rule out COVID-19. Plan: The patient's room air oxygen saturation is 87% and he does qualify for home oxygen. Appropri ate form was signed this morning and hospital staff will try to get home oxygen arranged. Once that is arranged, plan is to discharge him to go home. Patient is afebrile and his COVID-19 test result i s pending. Hopefully, it will be available Monday or so, but if the patient is ready for discharge, once oxygen arrangements get completed, then our plan is to discharge him to go home and he should co ntinue to follow appropriate precautions at home for COVID-19 isolation and nursing staff will provid e him with appropriate precautions. GURPREET/MODL Voice ID: [id number] Report ID: [id number]
[2019-07-20 17:53] VITALS: BP 134/60; TEMP 97.8
--- NOTE | 2019-07-29 21:22 | DS ---
Date of Discharge: 07/20/2019 Disposition: Discharged to go home. Physical Examination: See copy of today's progress note dictation for details hospital. Discharge Medications And Instructions: 1.Continue all prior home medications. 2.Take cefuroxime and prednisone as prescribed, take it with food, and prescription was sent from my office. 3.Follow up with Dr. Pacheco in 1 week. Follow up in my office in 2 weeks. 4.Use oxygen all the time per nasal cannula at 2 L/minute. 5.Follow isolation precautions for COVID-19 as given from hospital until further instruction. Hospital Course: This is an 83-year-old pleasant male patient, admitted to the hospital after he fel l down, had a head injury and low oxygen level and feeling dizzy. Please see dictated H and P for mo re information. After patient was evaluated in the emergency room, he was admitted to the hospital. Please see dictated H and P for more details. Patient had a superficial laceration of the right for ehead area just near the eyebrow and he had multiple sutures taken in the emergency room. He had windy e contusion around this area. His chest x-ray showed extensive fibrotic chronic interstitial lung ch anges, worse in the left lung. CAT scan of the chest showed prominent fibro-emphysematous changes pr esent throughout his lungs and presence of airspace opacity in both lower lobes with trace amount of fluid. Finding suspicious for pneumonia in both lung bases. CAT scan of the head and cervical spine was negative for any acute changes. Hip x-ray and pelvis x-ray were negative for fracture. It show ed some mild degenerative changes. His white count was 7.3, hemoglobin 11.4, platelets 120. Sodium 140, potassium 3.7, chloride 105, bicarb 23, BUN 24, creatinine 1.11, glucose 105. After he was eval uated in the ER, he was admitted to the hospital. Patient was a person under investigation for COVID -19 and appropriate isolation precautions were followed throughout this hospitalization. His COVID-1 9 test result was pending until the time of discharge. Dr. Pacheco was consulted from Pulmonary and he believes that the patient's hypoxia is most likely due to underlying chronic pulmonary fibrosis a nd patient was given empiric antibiotic for pneumonia. Overall, his condition remained stable. Arra ngements were made for patient to have home oxygen. Once that arrangement is completed, patient was discharged to go home in stable condition. Final Diagnoses: 1.Pneumonia. 2.Pulmonary fibrosis. 3.Head injury, initial. 4.Laceration, right forehead area. 5.Coronary artery disease. 6.Anemia. 7.Thrombocytopenia. 8.Osteoarthritis, multiple sites. 9.Hypertension. 10.Mixed hyperlipidemia. 11.Impaired fasting glucose. 12.Depression. 13.Chronic systolic congestive heart failure. GURPREET/MODL Voice ID: [id number] Report ID: [id number]
== END 2019-07-20 19:17 | disposition home or self-care (01) | DRG 194 ==
LOC: ER 09:08 → ERHOLD 12:28 → 4TH 14:09
PROVIDERS: ADMIT Internal Medicine; ATTEND Internal Medicine
PROC: 0JQ13ZZ Repair Face Subcutaneous Tissue and Fascia, Percutaneous Approach (ICD-10-PCS; principal; 2019-07-18)
PROC: 8E0ZXY6 Isolation (ICD-10-PCS; 2019-07-18)
DX: J18.9 Pneumonia, unspecified organism (principal); I50.22 Chronic systolic (congestive) heart failure; I11.0 Hypertensive heart disease with heart failure; I25.10 Atherosclerotic heart disease of native coronary artery without angina pectoris; E78.2 Mixed hyperlipidemia; Z79.01 Long term (current) use of anticoagulants; Y92.091 Bathroom in other non-institutional residence as the place of occurrence of the external cause; Z79.899 Other long term (current) drug therapy; S50.00XA Contusion of unspecified elbow, initial encounter; W18.12XA Fall from or off toilet with subsequent striking against object, initial encounter; S01.111A Laceration without foreign body of right eyelid and periocular area, initial encounter; J84.112 Idiopathic pulmonary fibrosis; Z95.0 Presence of cardiac pacemaker; K21.9 Gastro-esophageal reflux disease without esophagitis; Z95.1 Presence of aortocoronary bypass graft; Z90.79 Acquired absence of other genital organ(s); D64.9 Anemia, unspecified; D69.6 Thrombocytopenia, unspecified; M19.90 Unspecified osteoarthritis, unspecified site; R73.01 Impaired fasting glucose; F32.9 Major depressive disorder, single episode, unspecified; Z79.52 Long term (current) use of systemic steroids; S09.90XA Unspecified injury of head, initial encounter; Z20.828 Contact with and (suspected) exposure to other viral communicable diseases
CPT/HCPCS: 36415; 70450; 71045; 71250; 72125; 73521; 80053; 80061; 84484; 85025; 93005; 96374; 99285; J0456; J0696; J7030; J7512; U0002

== ENCOUNTER 2020-01-03 06:53 | Day surgery (SDC) | payer MEDICARE, OTHER ==
--- OUTSIDE RECORDS SUMMARY | 2020-01-03 07:00 | XMS REPORT | Continuity of Care Document ---
:1935 Author Organization [facility] t Address [address] [place] [address] Dr. Barnes [address] [place] [id number] Care Team Providers Name Role Phone Unavailable Unavailable Unavailable Problems This patient has no known problems. Allergies, Adverse Reactions, Alerts This patient has no known allergies or adverse reactions. Medications This patient has no known medications. Procedures This patient has no known procedures. Results This patient has no known results.
[2020-01-03] MEDS ORDERED: EPINEPHRINE/PF 1 MG/ML AMP ONE (07:18)
[2020-01-03] MEDS ORDERED: Ringers Lactate 1,000 ML IV ONE (07:31)
[2020-01-03] MEDS ORDERED: LIDOCAINE 1% MPF 30 ML VIAL ONE (07:32)
[2020-01-03] MEDS ORDERED: propofoL 200 MG/20 ML VIAL IV ONE (07:32)
[2020-01-03] MEDS ORDERED: Phenylephrine HCl 10 MG/ML 1 ML VIAL ONE (07:55)
[2020-01-03] MEDS ORDERED: NS 0.9% VIAL 0 ML ONE (07:55)
[2020-01-03 09:10] VITALS: BP 109/48; TEMP 97.5; O2SAT 93
[2020-01-03] MEDS ORDERED: NEOSTIGMINE 1 MG/ML -5 ML ONE (10:14)
[2020-01-03] MEDS ORDERED: GLYCOPYRROLATE 0.2 MG/ML SYR ONE (10:14)
--- NOTE | 2020-01-03 18:43 | OP ---
Surgeon: Shawn Waters MD Procedure To Be Performed: Esophagogastroduodenoscopy. Indication For Procedure: Dysphagia. Plan For Anesthesia: Monitored anesthesia care. Complexity: High due to patient's comorbidities. Technique: After obtaining informed consent from the patient explaining risks and complications, whi ch include, but are not limited to bleeding, infection, perforation, and anesthesia complication, the patient was placed in the left lateral position and sedation was given. From then on the scope was advanced to the mouth and carefully guided up till the second portion of the duodenum. After the com pletion of examination, scope and equipment were withdrawn and procedure terminated in a safe manner. Findings: The whole esophagus appeared to be tortuous, however, in the distal portion there was a mi ld stenosis seen. Along with the stenosis, there was evidence of LA grade C esophagitis with multipl e ulcerations in the distal esophagus. Biopsies taken. These findings are a relative contraindicati on to any dilation at this time. A small hiatal hernia was also seen in the distal portion of stomac h. Mild patchy erythema was seen in the body and antrum. In the antral pre-pyloric region, 2 crated but small ulcers were visualized. Biopsies were taken. Duodenum, the bulb, and second portion appe ared normal. Complications: None. Tolerance To Anesthesia: Excellent. Postoperative Diagnoses: Gastric ulcers, esophageal ulcers, severe esophagitis, hiatal hernia, gastr itis, esophageal stenosis. Plan: 1.Await pathology results. 2.Avoid NSAIDs. 3.Change PPI to twice a day. We will repeat endoscopy in 8 weeks time with possible dilation if nee ded. US/MODL Voice ID: [id number] Report ID: [id number]
== END 2020-01-03 08:53 | disposition home health service (06) ==
LOC: OR 06:53
PROVIDERS: ATTEND Internal Medicine Gastroenterology
PROC: 0DB78ZX Excision of Stomach, Pylorus, Via Natural or Artificial Opening Endoscopic, Diagnostic (ICD-10-PCS; 2020-01-03)
PROC: 0DB68ZX Excision of Stomach, Via Natural or Artificial Opening Endoscopic, Diagnostic (ICD-10-PCS; 2020-01-03)
PROC: 0DB58ZX Excision of Esophagus, Via Natural or Artificial Opening Endoscopic, Diagnostic (ICD-10-PCS; principal; 2020-01-03 08:00)
DX: K25.9 Gastric ulcer, unspecified as acute or chronic, without hemorrhage or perforation (principal); K22.10 Ulcer of esophagus without bleeding; K29.50 Unspecified chronic gastritis without bleeding; K20.9 Esophagitis, unspecified; K44.9 Diaphragmatic hernia without obstruction or gangrene; K22.2 Esophageal obstruction; Z20.828 Contact with and (suspected) exposure to other viral communicable diseases; E78.00 Pure hypercholesterolemia, unspecified; Z95.0 Presence of cardiac pacemaker
CPT/HCPCS: 43239; 88312 ×2; 88305; U0002; J2704; J2710; J7120; J0171; J2370

== ENCOUNTER 2020-02-27 07:06 | Day surgery (SDC) | payer MEDICARE, OTHER ==
--- OUTSIDE RECORDS SUMMARY | 2020-02-27 07:09 | XMS REPORT | Continuity of Care Document ---
:1935 Author Organization [facility] t Address [address] [place] [address] Dr. Barnes [address] [place] [id number] Care Team Providers Name Role Phone Unavailable Unavailable Unavailable Problems This patient has no known problems. Allergies, Adverse Reactions, Alerts This patient has no known allergies or adverse reactions. Medications This patient has no known medications. Procedures This patient has no known procedures. Results This patient has no known results.
[2020-02-27] MEDS ORDERED: propofoL 200 MG/20 ML VIAL IV ONE (07:20)
[2020-02-27] MEDS ORDERED: Ringers Lactate 1,000 ML IV ONE (07:52)
[2020-02-27 10:25] VITALS: TEMP 97.7
[2020-02-27 10:26] VITALS: BP 119/59; O2SAT 100
--- NOTE | 2020-02-27 10:38 | OP ---
Surgeon: Shawn Waters MD Procedure To Be Performed: Esophagogastroduodenoscopy. Indication For Procedure: Follow up on esophageal ulcers plus history of esophageal stenosis, possib le dilation. Plan For Anesthesia: Monitored anesthesia care. Complexity: Average. Technique: After obtaining informed consent from the patient explaining risks and complications whic h include but are not limited to bleeding, infection, perforation, and anesthesia complication, the p atient was placed in the left lateral position and sedation was given. From then on, the scope was a dvanced through the mouth and carefully guided up to the second portion of the duodenum. After the c ompletion of examination and all therapeutic diagnostic maneuvers, scope and equipment were withdrawn and procedure terminated in a safe manner. Findings: Esophagus: No gross lesion seen in the upper and mid esophagus. In the distal esophagus, there was mild stenosis seen with an irregular Z-line. Most of the ulceration has healed. Biopsies taken from this region. Stomach: Mild patchy erythema seen in the body. Moderate erythema seen in the antrum with a few ero sions. Biopsies taken. Duodenum: No gross lesions in the entire examined duodenum. After doing above, decided to proceed with the dilation. Just on the way back, the distal esophagus was dilated with Savary from 12 to 12.8 to 14 mm with the help of guidewire. Post-dilation views wer e normal. Complications: None. Tolerance To Anesthesia: Excellent. Postoperative Diagnosis: Mild esophageal stenosis, healed esophagitis, gastritis with a few erosions . Plan: Continue PPI. Avoid NSAIDs. Follow up in the GI clinic in 2 weeks. US/MODL Voice ID: [id number] Report ID: [id number]
== END 2020-02-27 10:10 | disposition home or self-care (01) ==
LOC: OR 07:06
PROVIDERS: ATTEND Internal Medicine Gastroenterology
PROC: 0DB68ZX Excision of Stomach, Via Natural or Artificial Opening Endoscopic, Diagnostic (ICD-10-PCS; 2020-02-27)
PROC: 0D738ZZ Dilation of Lower Esophagus, Via Natural or Artificial Opening Endoscopic (ICD-10-PCS; principal; 2020-02-27 08:00)
PROC: 0DB38ZX Excision of Lower Esophagus, Via Natural or Artificial Opening Endoscopic, Diagnostic (ICD-10-PCS; 2020-02-27 08:00)
DX: K22.2 Esophageal obstruction (principal); R13.10 Dysphagia, unspecified; K29.70 Gastritis, unspecified, without bleeding; K22.10 Ulcer of esophagus without bleeding; K44.9 Diaphragmatic hernia without obstruction or gangrene; R06.02 Shortness of breath; K25.9 Gastric ulcer, unspecified as acute or chronic, without hemorrhage or perforation; Z20.828 Contact with and (suspected) exposure to other viral communicable diseases
CPT/HCPCS: 88312; 88305; 43248; 43239; J7120; C1769; J2704